=== PATIENT | male | born 2000 | race Caucasian/White ===

== ENCOUNTER 2018-11-10 22:06 | Emergency (ER) | payer OTHER ==
[~2018-11-10] VITALS: Ht 180.3 cm; Wt 74.8 kg
[~2018-11-10 22:06] MED LIST: TYLENOL325 MG PO
== END 2018-11-11 00:17 | disposition home or self-care (01) ==
LOC: ED 22:06
DX: N50.811 Right testicular pain (principal)
CPT/HCPCS: 76870; 81001; 99284-25

== ENCOUNTER 2025-07-25 15:51 | Emergency (ER) | payer OTHER ==
[~2025-07-25] VITALS: Ht 180.3 cm; Wt 79.5 kg
[2025-07-25 17:52] VITALS: BP 130/89
== END 2025-07-25 17:52 | disposition home or self-care (01) ==
LOC: ED 15:51
DX: S09.90XA Unspecified injury of head, initial encounter (principal); S16.1XXA Strain of muscle, fascia and tendon at neck level, initial encounter; M54.50 Low back pain, unspecified; M25.512 Pain in left shoulder; M25.522 Pain in left elbow; Y04.8XXA Assault by other bodily force, initial encounter
CPT/HCPCS: 99283